=== PATIENT | male | born 2000 | race Caucasian/White ===

== ENCOUNTER 2018-03-25 16:14 | Emergency (ER) | payer MEDICAID, OTHER ==
[~2018-03-25] VITALS: Ht 180.3 cm; Wt 69.4 kg
[2018-03-25 16:25] VITALS: BP 116/75
== END 2018-03-25 17:07 | disposition home or self-care (01) ==
LOC: ED 16:48
DX: S63.642A Sprain of metacarpophalangeal joint of left thumb, initial encounter (principal); S63.622A Sprain of interphalangeal joint of left thumb, initial encounter; F17.200 Nicotine dependence, unspecified, uncomplicated; V00.131A Fall from skateboard, initial encounter; Y93.51 Activity, roller skating (inline) and skateboarding; Y99.8 Other external cause status; Y92.410 Unspecified street and highway as the place of occurrence of the external cause
CPT/HCPCS: 99284

== ENCOUNTER 2019-06-23 18:29 | Emergency (ER) | payer BC ==
[~2019-06-23] VITALS: Ht 175.3 cm; Wt 75.7 kg
--- NOTE | 2019-06-23 19:04 | NUR ---
THIS IS A 18Y MALE THAT COMES IN W/ C/O KIDNEY PAIN STARTING TODAY. PT STS HE HAS HAD HIP AND BACK PAIN FOR 4YRS BUT THIS IS DIFFERENT. PT RESTING ON GURNEY. EDUCATED ON NEED FOR URINE SAMPLE. PT STS CANNOT PEE RIGHT NOW BUT SOON.
--- NOTE | 2019-06-23 19:07 | NUR ---
PT PROVIDED WITH GOWN, STS TOO MUCH PAIN TO CHANGE INTO GOWN AND STS DOES NOT WANT VITALS AT THIS TIME.
[2019-06-23] MEDS ORDERED: ACETAMINOPHEN 500 MG TABLET ONE (19:28)
[2019-06-23] MEDS ORDERED: IBUPROFEN 600 MG TABLET ONE (19:28)
[2019-06-23] MEDS ORDERED: IBUPROFEN 600 MG TABLET PO ONE (19:30)
[2019-06-23] MEDS ORDERED: ACETAMINOPHEN 500 MG TABLET PO ONE (19:30)
--- NOTE | 2019-06-23 19:32 | NUR ---
PT MEDICATED PER MAR
--- NOTE | 2019-06-23 19:36 | NUR ---
UP TO RESTROOM FOR URINE SAMPLE, EDUCATED ON CLEAN CATCH
--- NOTE | 2019-06-23 19:52 | NUR ---
URINE SENT TO LAB
[2019-06-23 20:23] LABS: MICROSCOPIC NOT IND
[2019-06-23 20:27] VITALS: BP 114/41
--- NOTE | 2019-06-23 20:27 | NUR ---
PT REST[facility] L[facility] RE[facility], PT AGREED TO GET INTO GOWN AND HAVE VITALS TAKEN AT THIS TIME.
--- NOTE | 2019-06-23 20:29 | NUR ---
ALL RESULTS BACK AT THIS TIME CHART UP FOR RECHECK AWAITING FURTHER ORDERS
== END 2019-06-23 21:01 | disposition home or self-care (01) ==
LOC: ED 19:06
DX: S39.012A Strain of muscle, fascia and tendon of lower back, initial encounter (principal); X58.XXXA Exposure to other specified factors, initial encounter; Y93.89 Activity, other specified; Y92.89 Other specified places as the place of occurrence of the external cause; Y99.8 Other external cause status
CPT/HCPCS: 81003; 99283

== ENCOUNTER 2020-08-24 09:38 | Emergency (ER) | payer SELFPAY ==
[~2020-08-24] VITALS: Ht 175.3 cm; Wt 89.1 kg
--- NOTE | 2020-08-24 10:39 | NUR ---
pt down to xray
[2020-08-24 10:57] VITALS: BP 118/82
--- NOTE | 2020-08-24 10:58 | NUR ---
pt back from xray
== END 2020-08-24 11:42 | disposition home or self-care (01) ==
LOC: ED 11:37
DX: S46.811A Strain of other muscles, fascia and tendons at shoulder and upper arm level, right arm, initial encounter (principal); R07.89 Other chest pain; M13.111 Monoarthritis, not elsewhere classified, right shoulder; Z87.891 Personal history of nicotine dependence; X58.XXXA Exposure to other specified factors, initial encounter; Y93.89 Activity, other specified; Y92.89 Other specified places as the place of occurrence of the external cause; Y99.8 Other external cause status
CPT/HCPCS: 71045; 93005; 99284